=== PATIENT | male | born 1980 | race Caucasian/White ===

== ENCOUNTER 2021-09-24 13:22 | Emergency (ER) | payer OTHER, SELFPAY ==
--- NOTE | ~2021-09-24 | XR_ITS ---
EXAMINATION: XR lumbar spine 2-3V DATE: 09/24/2021 14:04 INDICATION: Lumbar back pain TECHNIQUE: Anteroposterior and lateral views of the lumbar spine, and cone-down lateral view of the l umbosacral junction were obtained. COMPARISON: None. FINDINGS: Alignment is normal. Transitional partially lumbarized S1 segment with 5 more cephalad nonrib-bearing lumbar segments. Vertebral body and disc heights are normal. 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 There is bilateral decreased femoral head/neck offset which can predispose towards cam-typ e femoral acetabular impingement with suggestion of an impingement all but the superolateral left fem oral head neck junction. Normal bowel gas pattern. Phleboliths in the left hemipelvis. IMPRESSION: 1. Transitional partially lumbarized S1 segment. Otherwise unremarkable lumbar spine. 2. Decreased bilateral femoral head neck junction which can predispose towards cam-type femoral aceta bular impingement. Reviewed, dictated and finalized at location A. IMPRESSION: 1. Transitional partially lumbarized S1 segment. Otherwise unremarkable lumbar spine. 2. Decreased bilateral femoral head neck junction which can predispose towards cam-type femoral acetabular impingement.
[2021-09-24 13:25] VITALS: BP 132/79; PULSE 71; RESP 19; TEMP 36.2; O2SAT 100
--- NOTE | 2021-09-24 13:39 | ED.BACK ---
HPI - Back Pain/Injury General Chief Complaint: Back Pain/Injury Stated Complaint: left back pain Time Seen by Provider: 09/24/21 13:38 Source: patient Mode of arrival: wheelchair Limitations: no limitations History of Present Illness HPI Narrative: Patient is a 40-year-old healthy male presenting to the emergency department for evaluation of left lower back pain. Patient reports onset of back pain when he was helping to lift a coffee table. Patient states that he was bending with his back and did not lift with his lower legs. Patient states acute, severe pain in the left flank with radiation into the left buttocks. Denies associated nausea, vomiting, chest pain, upper abdominal pain. He denies any radiation of the pain into the lower leg, denies any numbness or weakness. Patient reports pain with straightening his left leg. He reports history of lumbar strain in the past on this side. Patient denies any saddle anesthesia. Related Data Allergies Allergy/AdvReac Type Severity Reaction Status Date / Time No Known Allergies Allergy Verified 09/24/21 13:28 Review of Systems Review of Systems: CONSTITUTIONAL: Denies fever CARDIOVASCULAR: Denies chest pain RESPIRATORY: Denies cough or dyspnea. GASTROINTESTINAL: Denies abdominal pain SKIN: Denies rash MUSCULOSKELETAL: Reports left lower lumbar pain NEUROLOGIC: Denies headache [facility] Social History Social History (Updated 09/24/21 @ 14:17 by Marilee David MD) Smoking status: Never smoker Alcohol intake: current Alcohol use details: social Substance use: never Living arrangements: with family Gender identity (if verbalized by the patient): Male Exam Narrative: GENERAL: Awake, alert, conversant HEAD: Normocephalic, atraumatic. EYES: PERRLA and EOMI. ENT: Nares clear, no rhinorrhea or epistaxis. Mucous membranes moist. NECK: Supple. CHEST: No respiratory distress, breathing even and non labored HEART: Regular rate, sinus rhythm ABDOMEN:Non distended, non tender Thorax: No midline cervical, thoracic tenderness. No lumbar midline tenderness. No step-offs or deformities. Patient with left lumbar paraspinal tenderness which reproduces pain, positive SI joint tenderness. EXTREMITIES: Normal range of motion. No edema. SKIN: Warm, dry, no rash. NEURO:No focal deficits. Alert and oriented x3. Intact EHL/FHL. Strength in the bilateral lower extremities is 5/5. Course Vital Signs Vital signs: Vital Signs Temperature 36.2 C L 09/24/21 13:25 Pulse Rate 71 09/24/21 13:25 Respiratory Rate 19 09/24/21 13:25 Blood Pressure 132/79 09/24/21 13:25 Pulse Oximetry 100 09/24/21 13:25 Temperature 36.2 C L 09/24/21 13:25 Pulse Rate 71 09/24/21 13:25 Respiratory Rate 19 09/24/21 13:25 Blood Pressure 132/79 09/24/21 13:25 Pulse Oximetry 100 09/24/21 13:25 MDM - Back Pain/Injury MDM Narrative Medical decision making narrative: Patient presenting for evaluation of left lower lumbar back pain after helping to lift a coffee table. Patient reporting pain in the SI joint area without significant radiation into the lower leg but does report buttock pain. Patient without saddle anesthesia, genitalia numbness, bowel or bladder incontinence. No red flag symptoms. Patient does not have a history of cancer or osteoporosis. He does report a history of injuring this area in the past, also reports history of chronic pelvic osteoarthritis for which she is seeing is a physiotherapist. Patient is neurologically intact without any focal deficits. No chest pain, abdominal pain, significant flank pain that would be suggestive of acute vascular etiology. No infectious type symptoms. .The patient's presentation appears most likely to be secondary to non-emergent musculoskeletal etiology vs non-emergent disc herniation. Pain is reproducible, and patient has no other high risk factors such as history of malignancy, weight loss, infectious symptoms.
[2021-09-24] MEDS: ACETAMINOPHEN 500 MG TABLET 1000 MG PO (14:42)
[2021-09-24] MEDS: diazePAM (*CRX) 5 MG TABLET PO (14:42)
[2021-09-24] MEDS: KETOROLAC (*BKC) 60 MG/2 ML VIAL 30 MG IM (14:43)
[2021-09-24] MEDS: LIDOCAINE 5% PATCH 1 PATCH TRANSDERM (15:13)
== END 2021-09-24 15:45 | disposition home or self-care (01) ==
PROVIDERS: Emergency Provider Emergency Medicine
DX: S39.012A Strain of muscle, fascia and tendon of lower back, initial encounter (principal); X50.0XXA Overexertion from strenuous movement or load, initial encounter
CPT/HCPCS: 72100; 96372; 99283; A9270; J1100; J1885